=== PATIENT | male | born 1940 | race Caucasian/White ===

== ENCOUNTER 2021-06-07 14:20 | Outpatient (CLI) | payer OTHER, MEDICARE, SELFPAY ==
--- NOTE | 2021-06-07 14:47 | USCV_ITS ---
Mango Johnson Age: 80 Gender: M : 1940 Exam Date: 06/07/2021 15:06 Ordering Phys: NOT ON FILE, DOCTOR XX Technologist: Mitzi Henry Exam Location: [facility] [place] Indication: AFIB BP: / HR: 68 Rhythm: Sinus Technical Quality: Adequate MEASUREMENTS (Male / Female) Normal Values 2D ECHO LV Diastolic Diameter PLAX 5.0 cm 4.2 - 5.9 / 3.9 - 5.3 cm LV Systolic Diameter PLAX 4.4 cm LV Chamber Size 3.7 cm IVS Diastolic Thickness 1.5 cm 0.6 - 1.0 / 0.6 - 0.9 cm IVS Systolic Thickness 1.7 cm LVPW Diastolic Thickness 1.5 cm 0.6 - 1.0 / 0.6 - 0.9 cm LVPW Systolic Thickness 1.8 cm RV Chamber Size 2.9 cm LVOT Diameter 2.0 cm LV Ejection Fraction 2D Teich 5.9 % LV Ejection Fraction MOD 2C 13.2 % LV Ejection Fraction 2C AL 1.6 % LA Diameter 4.5 cm LA Width 4.0 cm LA Height 5.4 cm RA Width 3.4 cm RA Height 3.7 cm Aorta at Sinotubular Diameter 3.4 cm M-MODE LV Diastolic Diameter MM 5.5 cm 4.2 - 5.9 / 3.9 - 5.3 cm LV Systolic Diameter MM 4.1 cm LV Ejection Fraction MM Teich 50.2 % IVS Diastolic Thickness MM 0.9 cm 0.6 - 1.0 / 0.6 - 0.9 cm IVS Systolic Thickness MM 1.1 cm LVPW Diastolic Thickness MM 1.1 cm 0.6 - 1.0 / 0.6 - 0.9 cm LVPW Systolic Thickness MM 2.1 cm Aortic Annulus Diameter 3.3 cm LA Ao Ratio MM 1.5 MV E Point Septal Separation 1.4 cm DOPPLER AV Peak Velocity 116.0 cm/s LVOT Peak Velocity 61.7 cm/s AV Area Cont Eq vti 1.9 cm squared AV Area Cont Eq pk 1.7 cm squared MV Area PHT 2.7 cm squared Mitral E to A Ratio 0.6 MV E' Velocity 31.5 cm/s Mitral E to MV E' Ratio 10.6 Mitral E to LV E' Lateral Ratio 8.4 Mitral E to LV E' Septal Ratio 14.5 TR Peak Velocity 268.9 cm/s TR Peak Gradient 28.9 mmHg TR Mean Velocity 220.3 cm/s TR Mean Gradient 20.7 mmHg TR Velocity Time Integral 84.8 cm TV Peak E Velocity 47.0 cm/s Right Atrial Pressure 3.0 mmHg Pulmonary Artery Systolic Pressu 31.9 mmHg PV Peak Velocity 37.0 cm/s RV Acceleration Time 0.1 s RV Ejection Time 0.4 s RV AcT/ET 0.3 FINDINGS Left Ventricle Diffuse hypokinesia of the septum and anteroseptal segments. Moderate hypokinesis of the mid and apical inferior wall segments. Overall ejection fraction of 41%.mild left ventricular hypertrophy. Grade I/IV diastolic dysfunction (abnormal relaxation filling pattern), normal to mildly elevated filling pressures. Right Ventricle The right ventricle is normal in size and function. Right Atrium The right atrium is normal in size. Left Atrium Mildly increased left atrial size. Mitral Valve Thickened mitral valve. Moderate mitral annular calcification. Trace mitral valve regurgitation. Trace mitral valve regurgitation. Aortic Valve Thickened aortic valve. Tricuspid Valve Tricuspid valve not well visualized. Pulmonic Valve Pulmonic valve not well visualized. Pericardium Normal pericardium without effusion. Aorta Normal aortic annulus size. CONCLUSIONS Multiple wall motion normalities with a diminished LV ejection fraction of 41 percent. Mild left ventricular hypertrophy. Grade I/IV diastolic dysfunction (abnormal relaxation filling pattern), normal to mildly elevated filling pressures. Mildly increased left atrial size. Thickened mitral valve. Moderate mitral annular calcification. Thickened aortic valve. There is no pericardial effusion. There are no intracardiac masses. No previous study is available for comparison. Dr David Lares MD [facility] (Electronically Signed) Final Date: 08 June 2021 23:24 S
--- NOTE | 2021-06-07 14:47 | XRR_ITS ---
NOTE: Report was unsigned for reason: Ordering provider was edited. Original Signature date and time was: 06/07/20212005 PROCEDURE INFORMATION: Exam: XR Chest Exam date and time: 06/07/2021 2:47 PM Age: 80 years old Clinical indication: Cardiovascular condition or disease; Atrial fibrillation; Patient HX: History--afib, limited use of right side, could not lift arms, could not stand well - best possible images TECHNIQUE: Imaging protocol: XR of the chest. Views: 2 views. COMPARISON: No relevant prior studies available. FINDINGS: Lungs: There is architectural distortion in the inferolateral right lung. Left lung is clear. Pleural spaces: There is blunting of the right lateral costophrenic sulcus and obscuration of the right hemidiaphragm. Heart/Mediastinum: Cardiomediastinal contours are unremarkable. Bones/joints: Bones are unremarkable. [facility] XR/XR chest 2V* [id number] IMPRESSION: Blunting of the right lateral costophrenic sulcus and adjacent pulmonary parenchymal architectural distortion. This could represent pleural fluid with adjacent atelectasis. Alternatively, chronic pleural and parenchymal scarring could produce this finding.
== END 2021-06-07 14:21 | disposition home or self-care (01) ==
LOC: RAD 14:39
DX: I48.91 Unspecified atrial fibrillation (principal); I08.0 Rheumatic disorders of both mitral and aortic valves
CPT/HCPCS: 71046; 93306